=== PATIENT | female | born 1995 | race Caucasian/White ===

== ENCOUNTER 2018-05-01 17:19 | Emergency (ER) | payer OTHER ==
[2018-05-01 19:28] VITALS: BP 134/73
[2018-05-01] MEDS ORDERED: Ketorolac INJ* 30 MG/ML 1 ML VIAL IM ONE (21:12)
[2018-05-01] MEDS ORDERED: Dexamethasone IV* 4 MG/ML 1 ML (4 MG) IM ONE (21:13)
--- NOTE | 2018-05-01 21:15 | UC ---
Back Pain HPI - HPI Summary HPI Summary: 22-year-old female past medical history presents with months of right-sided upper thoracic pain located near the right scapula. Worse with certain movements, initially had gotten better with physical therapy and chiropractor visit in the past, has been worsening over the past week. Pain is sharp, intermittent, nonradiating, not associated with any weakness or numbness. Multiple prior episodes. Has not affected her daily function. - History of Current Complaint Chief Complaint: UCBackPain Stated Complaint: BACK PAIN Hx Last Menstrual Period: 04/11/18 Pain Intensity: 4 - Allergies/Home Medications Allergies/Adverse Reactions: Allergies Allergy/AdvReac Type Severity Reaction Status Date / Time No Known Allergies Allergy Verified 05/01/18 19:19 PMH/Surg Hx/FS Hx/Imm Hx - Additional Past Medical History Additional PMH: No past medical history Previously Healthy: Yes - Surgical History Surgical History: None - Family History Known Family History: Positive: Hypertension - Social History Alcohol Use: Occasionally Substance Use Type: None Smoking Status (MU): Never Smoked Tobacco Review of Systems Constitutional: Negative Skin: Negative Eyes: Negative ENT: Negative Cardiovascular: Negative Gastrointestinal: Negative Motor: Negative Musculoskeletal: Other: - Right-sided upper back pain Neurological: Negative All Other Systems Reviewed And Are Negative: Yes Physical Exam - Summary Physical Exam Summary: Gen: alert, in no acute distress HEENT: EOMI, normocephalic, atruamatic Neck: supple, no masses CV: Normal s1 s2, no murmurs, normal radial and pedal pulses bilaterally Resp: normal breath sounds b/l GI: no tenderness, no masses Musculoskeletal: normal ROM all 4 extremities, tenderness upon palpation to the muscles of the right upper back area that reproduces her pain Neuro: no obvious focal neurological deficits Skin: no rash Lymph: no lymphadenopathy Psych: appropriate affect, oriented Triage Information Reviewed: Yes Vital Signs: Initial Vital Signs Temp 36.6 C 05/01/18 19:20 Pulse 82 05/01/18 19:20 Resp 16 05/01/18 19:20 BP 134/73 05/01/18 19:20 Pulse Ox 100 05/01/18 19:20 Diagnostics - Radiology chest xr Xray Interpretation: No Acute Changes Radiology Interpretation Completed By: ED Physician Back Pain Course/Dx - Course Course Of Treatment: Patient given 1 dose of pain medication in the emergency department, instructed to follow up with primary care physician and physical therapist. Agrees to and understands discharge instructions. - Differential Dx/Diagnosis Provider Diagnoses: Back pain Discharge - Sign-Out/Discharge Documenting (check all that apply): Patient Departure All imaging exams completed and their final reports reviewed: Yes - Discharge Plan Condition: Stable Disposition: HOME Patient Education Materials: Back Pain (ED) Referrals: Shamika Nelson MD [Medical Doctor] - Jack Riley [Physical Therapist] - Dilip Tse DO [Medical Doctor] - Additional Instructions: PLEASE MAKE AN APPOINTMENT TO BE SEEN BY YOUR PRIMARY CARE DOCTOR WITHIN 1-2 WEEKS PLEASE REPORT TO THE ER FOR ANY WORSENING OR CONCERNING SYMPTOMS - Billing Disposition and Condition Condition: STABLE Disposition: Home
--- NOTE | 2018-05-02 07:55 | RAD ---
Indication: Right-sided chest pain. 2 views of the chest including dual energy PA views as well as 3 views of the right ribs demonstrates no fracture or dislocation. No evidence of pneumothorax is noted. Thoracic spine is unremarkable. IMPRESSION: No fracture of the right ribs. No pneumothorax is noted. R0
== END 2018-05-01 21:48 | disposition home or self-care (01) ==
LOC: UCCORT 17:19
DX: M54.6 Pain in thoracic spine (principal)
CPT/HCPCS: 96372; 99211; G0463; J1100; J1885